=== PATIENT | female | born 1950 | race Hispanic/Latino ===

== ENCOUNTER → 2022-03-23 | Outpatient (CLI) | payer MEDICARE | LOC: MAMMO 09:33 | PROVIDERS: ATTEND Obstetrics & Gynecology | DX: Z12.31 Encounter for screening mammogram for malignant neoplasm of breast (principal) | CPT/HCPCS: 77067 ==

== ENCOUNTER → 2024-10-29 | Outpatient (REF) | payer MEDICARE | LOC: MAMMO 10:32 | PROVIDERS: ATTEND Internal Medicine | DX: Z12.31 Encounter for screening mammogram for malignant neoplasm of breast (principal); M85.88 Other specified disorders of bone density and structure, other site | CPT/HCPCS: 77067; 77080 ==

== ENCOUNTER → 2025-05-10 | Outpatient (REF) | payer MEDICARE ==
[~2025-05-10] MED LIST: ALENDRONATE SODI5 MG; ALTOPREV40 MG PO; DIATRIZOATE MEGL/DIATRIZOA SOD 30 ML BTL PO ONE; FARXIGA10 MG; GLIPIZIDE-METF1 EAC2 PO; IOPAMIDOL 370 MG/ML 100 ML INFUS..BTL INJ ONE; LOSARTAN POTAS100 MG PO; LYRICA75 MG PO; METOPROLOL SUCC50 MG PO
[2025-05-10 10:45] LABS: EST GLOMERULAR FILTRATION RATE 60.0 ML/MIN (>=60)
[2025-05-24 10:58] LABS: BASOPHILS % 0.1 % (0.0-1.0); EOSINOPHILS % 0.0 % (0.0-6.0); LYMPHOCYTES % 14.4 % (18.0-39.1); MONOCYTES % 4.5 % (4.4-11.3); NEUTROPHILS % 80.7 % (38.7-80.0); RED CELL DISTRIBUTION WIDTH 12.8 % (11.7-14.4)
== END ==
LOC: CT 09:45
PROVIDERS: ATTEND Physician Assistant Medical
DX: Z12.11 Encounter for screening for malignant neoplasm of colon (principal); E11.9 Type 2 diabetes mellitus without complications; I10 Essential (primary) hypertension; R12 Heartburn; R63.4 Abnormal weight loss; Z68.24 Body mass index [BMI] 24.0-24.9, adult; Z78.9 Other specified health status
CPT/HCPCS: 36415; 74177; 82565; 84520; 85025; Q9963; Q9967

== ENCOUNTER → 2025-05-30 | Day surgery (SDC) | payer MEDICARE ==
[~2025-05-30] MED LIST changes: -DIATRIZOATE MEGL/DIATRIZOA SOD 30 ML BTL PO ONE; +FENTANYL CITRATE/PF 100MCG/2 ML INJ ONE; +GLYCOPYRROLATE INJ 0.2 MG/ML VIAL ONE; -IOPAMIDOL 370 MG/ML 100 ML INFUS..BTL INJ ONE; +LIDOCAINE HCL 2% LOCAL INJ 5 ML SDV VIAL INJ ONE; +PROPOFOL IV EMULSION 10 MG/ML 20 ML VIAL ONE
[2025-05-30 07:24] LABS: BASOPHILS % 0.2 % (0.0-1.0); EOSINOPHILS % 1.1 % (0.0-6.0); LYMPHOCYTES % 39.2 % (18.0-39.1); MONOCYTES % 9.4 % (4.4-11.3); NEUTROPHILS % 49.9 % (38.7-80.0); RED CELL DISTRIBUTION WIDTH 12.8 % (11.7-14.4)
[2025-05-30] MEDS: LACTATED RINGER'S 1,000 ML ONE (08:19)
[2025-05-30 08:22] VITALS: TEMP 97.5
[2025-05-30 08:50] VITALS: BP 140/79; PULSE 66; RESP 16; O2SAT 97
== END | disposition home or self-care (01) ==
LOC: OR 05:59
PROVIDERS: ATTEND Internal Medicine Gastroenterology
DX: Z12.11 Encounter for screening for malignant neoplasm of colon (principal); K64.8 Other hemorrhoids; K21.9 Gastro-esophageal reflux disease without esophagitis; K29.50 Unspecified chronic gastritis without bleeding; I12.9 Hypertensive chronic kidney disease with stage 1 through stage 4 chronic kidney disease, or unspecified chronic kidney disease; E11.22 Type 2 diabetes mellitus with diabetic chronic kidney disease; N18.30 Chronic kidney disease, stage 3 unspecified; E78.2 Mixed hyperlipidemia; Z86.0100 Personal history of colon polyps, unspecified; Z79.84 Long term (current) use of oral hypoglycemic drugs; Z79.899 Other long term (current) drug therapy; Z90.49 Acquired absence of other specified parts of digestive tract; Z01.810 Encounter for preprocedural cardiovascular examination; Z01.812 Encounter for preprocedural laboratory examination
CPT/HCPCS: 43239; G0121; 36415; 45378; 82948; 85025; 88305; 93005; J2003